=== PATIENT | female | born 1960 | race Caucasian/White ===

== ENCOUNTER → 2021-11-25 12:22 | Outpatient (CLI) | payer MEDICAID, SELFPAY ==
--- NOTE | ~2021-11-25 | XR_ITS ---
XR chest 2V 11/25/2021 12:58 Indication: Cough Procedure: 2 view chest Comparison: Comparison to multiple prior studies sequentially, with oldest reviewed study dated 05/31. Findings: Heart size normal. There is apical pleural thickening/scarring. There are surgical changes in the left mid thorax. Severe emphysema. No focal air space disease, pulmonary edema, pleural effusi on or suspected pneumothorax. Impression: 1: No acute cardiopulmonary disease. Reviewed, dictated and finalized at location A. Impression: 1: No acute cardiopulmonary disease.
== END ==
PROVIDERS: PCP Family Medicine; Visit Provider Nurse Practitioner Family
DX: R05.9 Cough, unspecified (principal)
CPT/HCPCS: 71046

== ENCOUNTER → 2022-01-13 16:26 | Outpatient (CLI) | payer MEDICAID, SELFPAY ==
--- NOTE | ~2022-01-13 | XR_ITS ---
XR foot LT 2V DATE: 01/13/2022 16:59 INDICATION: Oxygen tank dropped on foot TECHNIQUE: AP and lateral views COMPARISON: None FINDINGS: There is osteopenia. There is a subtle transverse minimally dorsally displaced fracture at the neck of the proximal phalan x of the fourth toe with soft tissue swelling of this digit. No other fracture or dislocation, periosteal reaction or bone destruction is detected. Joint spaces a re preserved. IMPRESSION: Fracture of neck of proximal phalanx of fourth digit Reviewed, dictated and finalized at location B.
== END ==
PROVIDERS: PCP Nurse Practitioner Family; Visit Provider Nurse Practitioner Family
DX: S92.512A Displaced fracture of proximal phalanx of left lesser toe(s), initial encounter for closed fracture (principal)
CPT/HCPCS: 73620

== ENCOUNTER 2022-03-23 15:16 | Outpatient (CLI) | payer MEDICAID, SELFPAY ==
--- NOTE | ~2022-03-23 | CT_ITS ---
EXAMINATION: CT diagnostic chest wo con DATE: 03/23/2022 15:35 INDICATION: Solitary pulmonary nodule TECHNIQUE: Computed tomography (CT) of the chest was performed without intravenous contrast. The dose -length product (DLP) was 63.99 mGy-cm. Automated exposure control and iterative reconstruction techn ique were employed. COMPARISON: 06/15/2011 FINDINGS: There is severe emphysema. There is a 5 mm pleural-based nodule in the superior segment of the right lower lobe. There are scarring and bronchiectasis in the left lung apex. No pleural effusio n or pneumothorax. No pathologically enlarged thoracic lymph nodes are identified. The heart size is normal. There is chronic, complete atelectasis of the right middle lobe. There are changes of lumpect vamsi in the left breast and left axillary lymph node dissection. No pathologically enlarged thoracic l ymph nodes are identified. The heart size is normal. There are partially imaged changes of anterior f usion in the lower cervical spine. IMPRESSION: 1. 5 mm nodule of the right lower lobe. Follow-up low-dose CT in 12 months is recommended. Reviewed, dictated and finalized at location B. [employer] IMPRESSION: 1. 5 mm nodule of the right lower lobe. Follow-up low-dose CT in 12 months is r ecommended.
== END 2022-03-23 15:17 | disposition home or self-care (01) ==
PROVIDERS: PCP Family Medicine
DX: R91.1 Solitary pulmonary nodule (principal)
CPT/HCPCS: 71250